=== PATIENT | male | born 1940 ===

== ENCOUNTER → 2024-03-29 08:33 | Outpatient (BNVA) | payer MEDICARE, OTHER, SELFPAY | PROVIDERS: PCP Internal Medicine; Referring Provider Internal Medicine; Visit Provider Specialist | DX: R51.9 Headache, unspecified (principal); R41.89 Other symptoms and signs involving cognitive functions and awareness; R46.89 Other symptoms and signs involving appearance and behavior; H53.2 Diplopia; R26.9 Unspecified abnormalities of gait and mobility | CPT/HCPCS: 36415; 82607; 82746; 83516; 83519; 84439; 84443; 85651; 99204; 99205 ==

== ENCOUNTER → 2024-09-13 14:15 | Outpatient (BNVA) | payer MEDICARE, OTHER, SELFPAY | PROVIDERS: PCP Internal Medicine; Visit Provider Specialist | DX: R51.9 Headache, unspecified (principal); R41.89 Other symptoms and signs involving cognitive functions and awareness; R46.89 Other symptoms and signs involving appearance and behavior; H53.2 Diplopia; R26.9 Unspecified abnormalities of gait and mobility | CPT/HCPCS: 99214 ==

== ENCOUNTER 2025-02-18 15:51 | Emergency (ER) | payer MEDICARE, OTHER, SELFPAY ==
[2025-02-18] VITALS (13 sets, daily range): BP systolic 100–157; BP diastolic 58–81; PULSE 62–159; RESP 14–20; TEMP 36.8; O2SAT 96–99; BMI 24.3
--- OUTSIDE RECORDS SUMMARY | 2025-02-18 15:56 | XMS_ITS | Encounter Summary ---
Author Organization [facility] [facility] Address [address] 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
--- OUTSIDE RECORDS SUMMARY | 2025-02-18 15:56 | XMS_ITS | Encounter Summary ---
Author Organization [facility] Address [address] [place] [address] Care Team Providers Care Online User Experience Strategist Name Role Phone Michael Vilchis MD Primary Care Provider [phone] Encounter Details Date Type Department Care Team (Late st Contact Info) Description 08/26/2023 Outside Records [facility] [address] 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
--- OUTSIDE RECORDS SUMMARY | 2025-02-18 15:56 | XMS_ITS | Encounter Summary ---
Author Organization [facility] Address [address] [place] [address] Care Team Providers Care Rn Integrity Name Role Phone Michael Vilchis MD Primary Care Provider Encounter Details Date Type Department Care Team (Late st Contact Info) Description 06/15/2023 Outside Records [facility] [address] [facility] [place] [address] Interface, Provider Social History Tobacco Use Types Packs/Day Years Used Date Smoking Tobacco: Former Cigarettes Q uit: 2010 Smokeless Tobacco: Never Alcohol Use Standard Drinks/Week Comments Not Currently 0 (1 standard drink = 0.6 oz pur e alcohol) Sex and Gender Information Value Date Recorded Sex Assigned at Not on file 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 No / Unsure 05/17/2023 1:57 PM CASHIER OFFICE documented as of this encounter Plan of Treatment Not on file documented as of this encounter Visit Diagnoses Not on filedocumented in this encounter Care Teams Rn Integrity Relationship Specialty Start Date End Date Michael Vilchis MD [address] [place] [address] PCP - General Internal Medicine 05/17/23 documented as of this encounter
--- OUTSIDE RECORDS SUMMARY | 2025-02-18 15:56 | XMS_ITS | Clinical Summary ---
Author Organization [facility] Address [address] [place] [address] [place] [address] Phone Care Team Providers Care Brim Cutter Name Role Phone Unavailable Primary Care Provider Unavailabl e Social History Tobacco Use Types Packs/Day Years Used Date Smoking Tobacco: Never Assessed Sex and Gender Information Value Date Recorded Sex Assigned at Not on file Legal Sex Male 9:57 AM CDT Gender Identity Not on file Sexual Orientation Not on file Plan of Treatment Health Maintenance Due Date Last Done Comments Depression Screening 1952 Influenza Vaccine (#1) 2025
--- OUTSIDE RECORDS SUMMARY | 2025-02-18 15:56 | XMS_ITS | Encounter Summary ---
Author Organization [employer] Address [address] 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
--- OUTSIDE RECORDS SUMMARY | 2025-02-18 15:56 | XMS_ITS | Encounter Summary ---
Author Organization [facility] Address [address] [place] [address] Care Team Providers Care Molder Punch Name Role Phone Michael Vilchis MD Primary Care Provider [phone] Encounter Details Date Type Department Care Team (Late st Contact Info) Description 06/01/2023 Outside Records [facility] [address] [facility] [place] [address] Interface, Provider Social History Tobacco Use Types Packs/Day Years Used Date Smoking Tobacco: Former Cigarettes Q uit: 2010 Smokeless Tobacco: Never Alcohol Use Standard Drinks/Week Comments Not Currently 0 (1 standard drink = 0.6 oz pur e alcohol) Sex and Gender Information Value Date Recorded Sex Assigned at Not on file 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 No / Unsure 05/17/2023 1:57 PM DATA RECOVERY PLANNER documented as of this encounter Plan of Treatment Not on file documented as of this encounter Visit Diagnoses Not on filedocumented in this encounter Care Teams Molder Punch Relationship Specialty Start Date End Date Michael Vilchis MD [address] [place] [address] PCP - General Internal Medicine 05/17/23 documented as of this encounter
--- OUTSIDE RECORDS SUMMARY | 2025-02-18 15:56 | XMS_ITS | Clinical Summary ---
Author Organization [facility] Address [address] [place] [address] Care Team Providers Care Wrapper Rewinder Name Role Phone Michael Vilchis MD Primary Care Provider [phone] Allergies No known active allergies Medications hydroxyUREA (HYDREA) 500 mg capsule Take one capsule (500 mg total) by mouth daily. Active diclofenac-miSO PROStol (ARTHROTEC 50) 50-200 mg-mcg per tablet Take one tablet by mouth daily. Active levothyroxine (SYNTHROID) 50 MCG tablet Take one tablet (50 mcg total) by mouth daily. Active multivitamin per tablet Take one tablet by mouth daily. Active calcium citrate (CALCITRATE) 200 mg (950 mg) tablet Take one tablet (200 mg total) by mouth daily. Active Active Problems Patient Care Coordination No te Formatting of this note migh t be different from the original. 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 Family History Medical History Relation Comments Lung cancer Brother 1 Colon cancer Brother 2 Leukemia Child Breast cancer (prior to age 50) Mother Breast cancer (prior to age 50) Sister Relation Status Comments Brother 1 Brother 2 Other Child Mother Sister Social History Tobacco Use Types Packs/Day Years Used Date Smoking Tobacco: Former Cigarettes Q uit: 2009 Smokeless Tobacco: Never Alcohol Use Standard Drinks/Week Comments Not Currently 0 (1 standard drink = 0.6 oz pur e alcohol) Sex and Gender Information Value Date Recorded Sex Assigned at Not on file 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 Gender Identity Not on file Sexual Orientation Not on file Last Filed Vital Signs Vital Sign Reading Time Taken Comments Blood Pressure 136/59 05/17/2023 2:14 PM [employer] Pulse 75 05/17/2023 2:14 PM [employer] Temperature 36.6 C (97.8 F) 05/17/2023 2:14 PM [employer] Respiratory Rate 16 05/17/2023 2:14 PM [employer] Oxygen Saturation - - Inhaled Oxygen Concentration - - Weight 89.5 kg (197 lb 4.8 oz) 05/17/2023 2:14 P M [employer] Height 185.4 cm (6' 1 ) 05/17/2023 2:14 PM [employer] Body Mass Index 26.03 05/17/2023 2:14 PM [employer] Plan of Treatment Health Maintenance Due Date Last Done Comments Annual Wellness Exam 1940 Depression Screening 1957 Zoster Vaccine (1 of 2) 1958 Respiratory Syncytial Virus (RSV) Immunization - pts and pts aged 60 yrs+ (1 - 1-dose 75+ series) 2014 Pneumococcal Vaccine 50+ (2 of 2 - PPSV23) 02/05/2024 02/04/2023 COVID-19 Vaccine (4 - 2024-2 6 season) 2025 04/30/2021, 08/05/2020, 07/08/2020 Influenza Series (#1) 2025 02/04/2023 TDAP/DTaP/TD Vaccines (2 - T d or Tdap) 08/26/2030 08/26/2020 Hepatitis B Vaccine Aged Out No longe r eligible based on patient's age to complete this topic Meningococcal B Vaccine Aged Out No l onger eligible based on [place] [address] MEDICARE PART A & B GENERIC COMMERCIAL AND MANAGED CARE on file Care Teams Wrapper Rewinder Relationship Specialty Start Date End Date Michael Vilchis MD [address] [place] [address] PCP - General Internal Medicine 05/17/23
--- OUTSIDE RECORDS SUMMARY | 2025-02-18 15:56 | XMS_ITS | Clinical Summary ---
Author Organization [facility] Address [address] 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
--- OUTSIDE RECORDS SUMMARY | 2025-02-18 15:56 | XMS_ITS | Encounter Summary ---
Author Organization [facility] Address [address] [place] [address] Care Team Providers Care Language Tutor Name Role Phone Michael Vilchis MD Primary Care Provider [phone] Encounter Details Date Type Department Care Team (Late st Contact Info) Description 09/07/2023 Outside Records [facility] [address] [facility] [place] [address] Interface, Provider Social History Tobacco Use Types Packs/Day Years Used Date Smoking Tobacco: Former Cigarettes Q uit: 2010 Smokeless Tobacco: Never Alcohol Use Standard Drinks/Week Comments Not Currently 0 (1 standard drink = 0.6 oz pur e alcohol) Sex and Gender Information Value Date Recorded Sex Assigned at Not on file 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
--- NOTE | 2025-02-18 16:04 | ECG_ITS ---
[facility]25[facility]18 Pat Name: Gino Zabala Department: Room: Gender: Male Subway Guard: : 1940 Requested By: Kristie Mcgee Order Number: [id number] Ashlee MD: Constantin Christian M.D. Measurements Intervals [place] Rate: 157 P: 0 RI: 0 QRS: 37 QRSD: 86 T: 75 QT: 263 QTc: 426 Interpretive Statements ATRIAL FIBRILLATION WITH RAPID VENTRICULAR RESPONSE MODERATE ST DEPRESSION [0.05+ mV ST DEPRESSION] CRITICAL TEST RESULT No previous ECG available for comparison Electronically Signed On 02-18-2025 23:25:21 CDT by Constantin Christian M.D. [email or web address]
--- NOTE | 2025-02-18 16:13 | ED_ITS ---
HPI - Arrhythmia/Palpitations 2 General: Chief Complaint: Arrhythmia/Palpitations Stated Complaint: high hr Time Seen by Provider: 02/18/25 15:52 History of Present Illness: 84-year-old man with a history of quispe ry artery disease status post stents at [facility] recently, hypothyroidism and recent workup for headaches and vision changes who was brought to the emergency room on a rapid response from neurology clinic with tachycardia. Heart rate is in the 150s on presentation here. He says he has some minor palpitations and just has had some generalized weakness. He has never been diagnosed with atrial fibrillation and never had A-fib with RVR before. No chest pain. No altered mental status. No focal motor deficits. No nausea or vomiting. Related Data Home Medications ?Medication ?Instructions ?Recorded ?Confirmed aspirin 81 mg tablet,delayed 81 mg PO DAILY 03/29/24 1 release (Adult Aspirin Regimen) hydroxyurea 500 mg capsule PO 03/29/24 02/18/25 levothyroxine 50 mcg tablet mcg PO 03/29/24 02/18/25 mv-mn-folic 200 mcg-vit K 15 cap PO 03/29/24 02/18/25 mcg-lutein 5 mg-zeaxanthin 1 mg capsule (PreserVision AREDS 2 Plus Multivit) Previous Rx's ?Medication ?Instructions ?Recorded topiramate 100 mg tablet (Topamax) 100 mg PO DAILY #90 tabs 03/29/24 citalopram 20 mg tablet 20 mg PO DAILY #30 tabs 05/0 06/09 apixaban 5 mg tablet (Eliquis) 5 mg PO BID #60 tabs galcanezumab-gnlm 120 mg/mL 120 mg SUBCUT Q30D #1 mL 1 subcutaneous pen injector (Emgality Pen) galcanezumab-gnlm 120 mg/mL 240 mg (2 mL) SUBCUT ONCE #2 mL 02/18/25 subcutaneous pen injector (Emgality Pen) metoprolol tartrate 25 mg tablet 12.5 mg (1/2 x 25 mg) PO BID #30 02/18/25 tabs Allergies Allergy/AdvReac Type Severity Reaction Status Date / Time No Known Allergies Allergy Verified 02/18/25 14:24 Review of Systems 2 Narrative: Constitutional symptoms: Negative except as documented in HPI. Skin symptoms: Negative except as documented in HPI. Eye symptoms: Negative except as documented in HPI. ENMT symptoms: Negative except as documented in HPI. Respiratory symptoms: Negative except as documented in HPI. Cardiovascular symptoms: Negative except as documented in HPI. Gastrointestinal symptoms: Negative except as documented in HPI. Genitourinary symptoms: Negative except as documented in HPI. Musculoskeletal symptoms: Negative except as documented in HPI. Neurologic symptoms: Negative except as documented in HPI. Psychiatric symptoms: Negative except as documented in HPI. Endocrine symptoms: Negative except as documented in HPI. PFSH ED 2 PFSH: Social History Smoking and tobacco/nicotine status: former use of tobacco/nicotine Physical Exam 2 Narrative: EXAM NARRATIVE: General: Alert, no acute distress. Skin: Warm, dry. Head: Normocephalic, atraumatic. Neck: Supple, trachea midline. Eye: Extraocular movements are intact. Ears, nose, mouth and throat: mucosa moist. Cardiovascular: Tachycardic, Normal peripheral perfusion. Respiratory: Lungs are clear to auscultation, respirations are non-labored, breath sounds are equal, Symmetrical chest wall expansion. Gastrointestinal: Soft, Nontender, Non distended Musculoskeletal: Normal ROM, no deformity. Neurological: Alert and oriented, No focal neurological deficit observed. Psychiatric: Cooperative, appropriate mood & affect. Course 2 Vital Signs: Vital signs: Vital Signs Temperature 98.2 F 02/18/25 16:06 Pulse Rate 83 02/18/25 19:15 Respiratory Rate 14 02/18/25 19:15 Blood Pressure 147/80 02/18/25 19:15 Pulse Oximetry 96 02/18/25 19:15 Oxygen Delivery Me thod Room Air 02/18/25 16:06 MDM - Arrhythmia/Palpitations Medical Decision Making Medical decision making: Differential diagnosis including but not limited to and based on the above HPI, review of systems and physical exam: for patient with palpitations: atrial fibrillation with rapid ventricular response. ventricular tachycardia. sinus tachycardia. PVCs. also concern for underlying issues causing tachycardia. Infection, electrolyte abnormalities and thyroid issues. Orders placed to evaluate differential diagnosis based on the above differential, HPI and physical exam EKG: Time 1604. Rate 157. Atrial fibrillation with rapid ventricular response, No ST-T changes, no ectopy, This was reviewed and interpreted by myself the ER physician at 1608 Repeat EKG: Time 1638. Rate 77. Normal sinus rhythm, No ST-T changes, no ectopy, normal OH & QRS intervals, This was reviewed and interpreted by myself the ER physician at 1645. Patient has converted into his normal sinus rhythm. Consultation: I spoke with the patient's interior designer Dr. Chan at [facility] in [place]. Patient is insistent that he wants to go home and Dr. Marin does agree that he could go home if his workup is normal. He recommends placing him on Eliquis. Lab Review: Laboratory results were reviewed and interpreted by myself the emergency room physician. mild leukocytosis. No significant anemia. BUN and creatinine are 21 and 1.6. I do not know his baseline. Troponins are slightly elevated at 50 but unchanged and likely due to his renal function. I reviewed the patient's medical record. 84-year-old man with a history of coronary artery disease status post stents at [facility] recently, hypothyroidism and recent workup for headaches and vision changes Reexamination: Patient has remained in a sinus rhythm. Patient remained stable. No increased work of breathing. No altered mental status. No focal motor deficits. Assessment and plan: A-fib with RVR New set atrial fibrillation. ?Patient request to go home. No acute findings and he has converted. Placing on some low-dose beta-supriya and Eliquis. Per his interior designer - Discharged home - Discussed plan with patient. Answered any questions. - Evaluation and treatment of this problem were appropriate in the emergency setting. Lab Data 02/18/25 16:52 02/18/25 16:52 Laboratory Results WBC 12.90 10^3/uL (3.29-11.43) H 02/18/25 16:52 RBC 2.98 10^6/uL (3.85-5.65) L 02/18/25 16:52 Hgb 11.00 g/dL (11.27-16.99) L 02/18/25 16:52 Hct 32.4 % (37-53) L 02/18/25 16:52 MCV 108.7 fl (82-101) H 02/18/25 16:52 MCH 36.9 pg (27-33) H 02/18/25 16:52 MCHC 34.0 g/dL (30-55) 02/18/25 16:52 RDW 21.0 % (12.1-15.1) H 02/18/25 16:52 Plt Count 693 10^3/cmm (157-399) H 02/18/25 16:52 MPV 9.9 fL (7.4-10.4) 02/18/25 16:52 Lymph % (Auto) Not Reportable 02/18/25 16:52 [place] % (Auto) Not Reportable 02/18/25 16:52 Lymph # (Auto) Not Reportable 02/18/25 16:52 [place] # (Auto) Not Reportable 02/18/25 16:52 Total Counted 100 (0-100) 02/18/25 16:52 Atypical Lymphs % 0.0 % (0-5) 02/18/25 16:52 Absolute Neutrophils 9.5 10^3/cmm (1.4-6.5) H 02/18/25 16:52 Segmented Neutrophils 55 % 02/18/25 16:52 Band Neutrophils 19.0 % 02/18/25 16:52 Absolute Lymphocytes 2.3 10^3/cmm (1.2-3.4) 02/18/25 16:52 Lymphocytes (Manual) 18 % 02/18/25 16:52 Monocytes (Manual) 0.0 % 02/18/25 16:52 Absolute Monocytes 0.0 10^3/cmm (0.1-0.6) L 02/18/25 16:52 Eosinophils (Manual) 0 % 02/18/25 16:52 Absolute Eosinophils 0.0 10^3/cmm (0.0-0.7) 02/18/25 16:52 Basophils (Manual) 0.0 % 02/18/25 16:52 Absolute Basophils 0.0 10^3/cmm (0.0-0.2) 02/18/25 16:52 Metamyelocytes 5.0 % 02/18/25 16:52 Myelocytes 1.0 % 02/18/25 16:52 Nucleated RBCs 2.0 /100WBC (0-1) H 02/18/25 16:52 Smudge Cells 1+ H 02/18/25 16:52 Platelet Estimate Increased (Normal) 02/18/25 16:52 Giant Platelets 1+ H 02/18/25 16:52 Anisocytosis 3+ H 02/18/25 16:52 Macrocytosis 2+ H 02/18/25 16:52 Sodium 140 mmol/L (136-145) 02/18/25 16:52 Potassium 5.0 mmol/L (3.5-5.1) 02/18/25 16:52 Chloride 105 mmol/L (98-107) 02/18/25 16:52 Carbon Dioxide 22 mmol/L (22-29) 02/18/25 16:52 Anion Gap 18.0 (5-19) 02/18/25 16:52 BUN 21 mg/dL (8-23) 02/18/25 16:52 Creatinine 1.6 mg/dL (0.7-1.2) H 02/18/25 16:52 GFR Calculation Not Reportable 02/18/25 16:52 Glucose 106 mg/dL (65-115) 02/18/25 16:52 Calculated Osmolality 293 mOsm/kg (285-295) 02/18/25 16:52 Calcium 9.2 mg/dL (8.5-10.5) 02/18/25 16:52 Magnesium 2.2 mg/dL (1.7-2.3) 02/18/25 16:52 Total Bilirubin 0.7 mg/dL (0.15-1.2) 02/18/25 16:52 AST 21 U/L (0-40) 02/18/25 16:52 ALT 17 U/L (0-41) 02/18/25 16:52 Alkaline Phosphatase 82 U/L (40-130) 02/18/25 16:52 Troponin T Baseline 51 ng/L (0-15) H 02/18/25 16:52 Troponin T 120 Minute 54.14 ng/L (0-15) H 02/18/25 18:22 Delta Troponin T 3.14 ABS# (0-10) 02/18/25 18:22 Total Protein 7.0 g/dL (6.6-8.7) 02/18/25 16:52 Albumin 4.5 g/dL (3.5-5.2) 02/18/25 16:52 Globulin 2.5 g/dL (1.3-4.6) 02/18/25 16:52 TSH 6.55 uIU/mL (0.27-4.20) H 02/18/25 16:52 Urine Color Yellow (Yellow) 02/18/25 17:29 Urine Appearance Clear (CLEAR) 02/18/25 17:29 Urine pH 6.5 (5-7) 02/18/25 17:29 Ur Specific [place] 1.012 (1.005-1.030) 02/18/25 17:29 Urine Protein Negative (Negative) 02/18/25 17:29 Urine Glucose (UA) Negative (Normal) 02/18/25 17: Urine Ketones Negative (Negative) 02/18/25 17:29 Urine Blood Negative (Negative) 02/18/25 17: Urine Nitrate Negative (Negative) 02/18/25 17: Urine Bilirubin Negative (Negative) 02/18/25 17: Urine Urobilinogen 1.0 mg/dL (Negative) 02/18/25 17:29 Ur Leukocyte Esterase Negative (Negative) 02/18/25 17:29 Urine RBC None /hpf (0-2) 02/18/25 17:29 Urine WBC None /hpf (0-5) 02/18/25 17:29 Ur Squamous Epith Cells None /hpf (0-5) 02/18/25 17:29 Amorphous Sediment Not Reportable 02/18/25 17:29 Urine Bacteria None /hpf (NONE) 02/18/25 17:29 Urine Mucus None /hpf 02/18/25 17:29 Influenza A (PCR) Negative (Negative) 02/18/25 17:23 Influenza Type B (PCR) Negative (Negative) 02/18/25 17:23 RSV (PCR) Negative (Negative) 02/18/25 17:23 SARS-CoV-2 (PCR) Negative (Negative) 02/18/25 17:23 No radiology studies performed this visit Discharge Plan Discharge Patient Disposition: Home Clinical Impression: Atrial fibrillation, new onset, Atrial fibrillation with rapid ventricular response Condition: Stable Prescriptions: New metoprolol tartrate 25 mg tablet 12.5 mg PO BID Qty: 30 1RF Eliquis 5 mg tablet 5 mg PO BID Qty: 60 1RF No Action citalopram 20 mg tablet 20 mg PO DAILY Qty: 30 5RF Emgality Pen 120 mg/mL pen injector 240 mg SUBCUT ONCE Qty: 2 0RF Rx Instructions: Loading dose Emgality Pen 120 mg/mL pen injector 120 mg SUBCUT Q30D Qty: 1 5RF hydroxyurea 500 mg capsule PO levothyroxine 50 mcg tablet PO PreserVision AREDS 2 Plus MV 200 mcg-15 mcg- 5 mg-1 mg capsule PO aspirin [Adult Aspirin Regimen] 81 mg tablet,delayed release (DR/EC) 81 mg PO DAILY topiramate [Topamax] 100 mg tablet 100 mg PO DAILY Qty: 90 3RF Discharge Orders: Discharge ED (Routine); Ordered 02/18/25 Ordered By: Kristie Breaux Referrals: Michael Vilchis MD [Primary Care Provider, Internal Medicine] Valentino Marin MD [Referring, Cardiology] - 2 weeks Referral Note: Please call for follow-up appointment Discharge Diet: Usual diet Discharge Activity: Increase activity as tolerated Patient Instructions: Apixaban (By mouth) (Eliquis), A-fib (Atrial Fibrillation) (ED), Opioid Safety, Pain Management, Patient Portal & Phan Instructions Activity Restrictions/Additional Instructions: Thank you for choosing [facility] for your healthcare needs today. You have been screened and evaluated and felt safe for discharge. Health conditions do change or evolve sometimes and as such it is important that you follow up with your Primary Doctor to be re checked, 3-5 days is a general good time frame for follow up. You are always welcome to return to the ED for re assessment if your symptoms are worsening or you have new concerns Print Language: Unknown Coding Level of Care Code ED [employer] Manager for [employer]
[2025-02-18] MEDS: amiodarone 50 mg/mL SDV 3 mL 150 MG IVP (16:21)
[2025-02-18] MEDS: AMIODARONE HCL/D5W 900 MG/500 ML BAG 33.33 MG IV (16:25)
--- NOTE | 2025-02-18 16:38 | ECG_ITS ---
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 Measurements Intervals [place] Rate: 77 P: 51 AR: 165 QRS: 14 QRSD: 83 T: 79 QT: 349 QTc: 397 Interpretive Statements SINUS RHYTHM Compared to ECG 02/18/2025 16:04:31 Atrial fibrillation no longer present ST (T wave) deviation no longer present Electronically Signed On 02-18-2025 23:30:01 CDT by Constantin Christian M.D. [email or web address]
[2025-02-18 17:03] LABS: Hematocrit 32.4 % (37-53); Hemoglobin 11.00 g/dL (11.27-16.99); Mean Corpuscular HGB Conc 34.0 g/dL (30-55); Mean Corpuscular Hemoglobin 36.9 pg (27-33); Mean Corpuscular Volume 108.7 fl (82-101); Platelet Count 693 10^3/cmm (157-399); Red Blood Count 2.98 10^6/uL (3.85-5.65); White Blood Count 12.90 10^3/uL (3.29-11.43)
[2025-02-18 17:40] LABS: Slide Review Slide Review Perform
[2025-02-18 17:41] LABS: Absolute Segmented Neutrophil 7.1 10/cmm (1.6-7.1); Anisocytosis 3+; Atypical Lymphs 0.0 % (0-5); Band Neutrophils Absolute 2.5 10^3/cmm (0.0-1.2); Giant Platelets 1+; Macrocytosis 2+; Total Cells Counted 100 (0-100)
[2025-02-18 17:42] LABS: Smudge Cells 1+
[2025-02-18 17:44] LABS: Troponin(5th) Baseline 51 ng/L (0-15)
[2025-02-18 17:54] LABS: Alanine Aminotransferase 17 U/L (0-41); Albumin Level 4.5 g/dL (3.5-5.2); Alkaline Phosphatase 82 U/L (40-130); Anion Gap 18.0 (5-19); Aspartate Amino Transferase 21 U/L (0-40); Blood Urea Nitrogen 21 mg/dL (8-23); Calcium 9.2 mg/dL (8.5-10.5); Carbon Dioxide 22 mmol/L (22-29); Chloride 105 mmol/L (98-107); Creatinine Clr Calc Pharmacy 38.8268; Globulin 2.5 g/dL (1.3-4.6); Glucose 106 mg/dL (65-115); Magnesium 2.2 mg/dL (1.7-2.3); Osmolality Calculated 293 mOsm/kg (285-295); Potassium 5.0 mmol/L (3.5-5.1); Sodium 140 mmol/L (136-145); Thyroid Stimulating Hormone 6.55 uIU/mL (0.27-4.20); Total Protein 7.0 g/dL (6.6-8.7)
[2025-02-18 18:04] LABS: Glucose Urine UA Negative (Normal); Nitrate Urine Negative (Negative); Specific Gravity, Urine 1.012 (1.005-1.030)
[2025-02-18 18:09] LABS: Respiratory Syncytial Virus Ce NEGATIVE (Negative); SARS-CoV-2 PCR NEGATIVE (Negative)
[2025-02-18 19:11] LABS: Troponin 5 2HR 54.14 ng/L (0-15); Troponin 5 2HR Delta 3.14 ABS# (0-10)
== END 2025-02-18 20:33 | disposition home or self-care (01) ==
PROVIDERS: Emergency Provider Emergency Medicine; PCP Internal Medicine
DX: I48.20 Chronic atrial fibrillation, unspecified (principal); Z79.82 Long term (current) use of aspirin; Z11.52 Encounter for screening for COVID-19; Z87.891 Personal history of nicotine dependence; G44.59 Other complicated headache syndrome; R41.89 Other symptoms and signs involving cognitive functions and awareness; R46.89 Other symptoms and signs involving appearance and behavior; H53.2 Diplopia; R26.9 Unspecified abnormalities of gait and mobility
CPT/HCPCS: 36415; 80053; 81001; 83735; 84443; 84484; 85007; 85025; 87637; 93005; 96374; 99215; 99284; A4222; J0282; J9999